=== PATIENT | female | born 1985 | race Caucasian/White ===

== ENCOUNTER 2020-06-30 14:34 | Outpatient (CLI) | payer OTHER | END 2020-06-30 14:44 | disposition home or self-care (01) | LOC: SONOGRAMA 14:34 → MAMO-SONO 14:45 | PROVIDERS: ATTEND Internal Medicine | DX: R79.89 Other specified abnormal findings of blood chemistry (principal); E78.00 Pure hypercholesterolemia, unspecified; Z68.30 Body mass index [BMI] 30.0-30.9, adult; E55.9 Vitamin D deficiency, unspecified ==

== ENCOUNTER 2020-09-01 03:01 | Emergency (ER) | payer OTHER ==
[~2020-09-01] VITALS: Ht 162.6 cm; Wt 72.1 kg
[2020-09-01] MEDS ORDERED: PEPCID AC20 MG PO (11:17)
[2020-09-01] MEDS ORDERED: INTESTINEX680 M1 PO (11:17)
[2020-09-01] MEDS ORDERED: ONDANSETRON HCL8 MG PO (11:23)
== END 2020-09-01 11:23 | disposition home or self-care (01) ==
LOC: ER 03:01
DX: K29.60 Other gastritis without bleeding (principal)

== ENCOUNTER 2021-05-11 21:17 | Emergency (ER) | payer OTHER ==
[~2021-05-11] VITALS: Ht 157.5 cm; Wt 72.1 kg
[~2021-05-11 21:17] MED LIST: INTESTINEX680 M1 PO; ONDANSETRON HCL8 MG PO; PEPCID AC20 MG PO
[2021-05-11] MEDS ORDERED: PROMETRIUM200 MG PO (21:27)
[2021-05-11] MEDS ORDERED: TIROSINT88 MCG PO (21:27)
[2021-05-11] MEDS ORDERED: ENDOMETRIN100 MG VG (21:28)
== END 2021-05-12 02:12 | disposition home or self-care (01) ==
LOC: ER 21:17
DX: N93.9 Abnormal uterine and vaginal bleeding, unspecified (principal); R10.2 Pelvic and perineal pain